=== PATIENT | female | born 1990 | race African-American/Black ===

== ENCOUNTER 2016-07-04 23:57 | Emergency (ER) | payer MEDICAID ==
[~2016-07-04] VITALS: Ht 165.1 cm; Wt 79.0 kg
[~2016-07-04 23:57] MED LIST: CLIN1CAP6 PO; HYDR-3534 PO; PERI0.126 SWISH-SPIT
[2016-07-04 23:59] VITALS: BP 125/80; PULSE 112; RESP 20; TEMP 102.8; O2SAT 97
[2016-07-05] MEDS ORDERED: DEXAMETHASONE SOD PHOS 20 MG/5 ML VIAL IM ONE (00:30)
[2016-07-05] MEDS ORDERED: IBUPROFEN 800 MG TAB PO ONE (00:30)
--- NOTE | 2016-07-05 00:41 | PD ---
HPI Chief Complaint: ENT Complaint Time Seen by Provider: 00:35 Travel History International Travel<30 days: No Contact w/Intl Traveler<30days: No Traveled to known affect area: No History of Present Illness HPI 25-year-old black female presents to emergency Department with complaints of sore throat, fever, chills, earache, congestion, cough and general malaise 2 days duration. Positive myalgias and arthralgias. She states the symptoms are severe. Worse with swallowing and coughing. No alleviating factors. She has not taken anything at home for her fever or sore throat. [facility] Past Medical History Medical History: Denies Significant Hx Diminished Hearing: No Reproductive: Yes (RT OVARIAN CYST, PID) Immunizations Current: Yes Tetanus Vaccination: < 5 Years ?: Unknown LMP: 05/2016 : 3 Para: 1 Miscarriage: 0 : 1 Past Surgical History Surgical History: No Previous Surgery Section: No Social History Alcohol Use: No Tobacco Use: No Substance Use: No Allergies-Medications (Allergen,Severity, Reaction): Coded Allergies: Keflex (Verified Allergy, Mild, rash, 07/05/16) Reported Meds & Prescriptions Reported Meds & Active Scripts Active No Active Prescriptions or Reported Medications Review of Systems Except as stated in HPI: all other systems reviewed are Neg Physical Exam Narrative GENERAL: Well-developed, well-nourished in no acute distress. Nontoxic appearing. HEAD: Normocephalic, atraumatic. EYES: Pupils equal round and reactive. Extraocular motions intact. No scleral icterus. No injection or drainage. ENT: TMs clear without erythema. The external auditory canals clear. Nose: clear . Posterior pharynx is erythematous and moist. Positive tonsillar edema with white exudate. Uvula midline. Airway patent. NECK: Trachea midline.Supple, nontender, moves head freely. No central bony tenderness or spasm. Few cervical adenopathy CARDIOVASCULAR: Regular rate and rhythm without murmurs, gallops, or rubs. RESPIRATORY: Clear to auscultation. Breath sounds equal bilaterally. No wheezes , rales, or rhonchi. GASTROINTESTINAL: Abdomen soft, non-tender, nondistended. No hepato-splenomegaly , or palpable masses. No guarding. EXTREMITIES: No clubbing, cyanosis, or edema. No joint tenderness, effusion, or edema noted. BACK: Nontender without deformity or crepitance. No flank tenderness. Data Data Last Documented VS Vital Signs Date Time Temp Pulse Resp B/P Pulse Ox O2 Delivery O2 Flow Rate FiO2 07/05/16 01:56 99.8 82 16 139/63 99 Room Air Orders Ibuprofen (Motrin) (07/05/16 00:30) Group A Rapid Strep Screen (07/05/16 00:27) Dexamethasone Inj (Decadron Inj) (07/05/16 00:30) Azithromycin (Zithromax) (07/05/16 02:00) MDM Medical Decision Making Medical Screen Exam Complete: Yes Emergency Medical Condition: Yes Medical Record Reviewed: Yes Interpretation(s) Rapid strep: Positive for group A strep Differential Diagnosis MDM: High Differential diagnoses: Strep throat, viral pharyngitis, mono, influenza, influenza-like illness Narrative Course pATIENT IS GIVEN dECADRON 10 MG im, Motrin 800 mg by mouth and by mouth fluid challenge Patient strep is positive. She is given Zithromax 500 mg by mouth. This is acute strep pharyngitis Diagnosis Primary Impression: Acute streptococcal pharyngitis Patient Instructions: General Instructions Departure Forms: Tests/Procedures, Work Release Special Instructions: No work 3 days. Additional Instructions: Rest. Force fluids. Saltwater gargles. 3 Advil every 6 hours. Chloraseptic [place] Cepastat lozenge. Zithromax, magic mouthwash, prednisone Follow-up with a primary care doctor in one week. Return to the ER if any problems. Med/Other Pt SpecificInfo: Prescription(s) given Scripts Prednisone (Deltasone)20 Mg Tab20 Mg PO BID #6 TAB Prov:Annia Townsend MD 07/05/16 Ygzpqamb-Yyndmkhhjdwtmuj-Fazhdkvpd Liq (Magic Mouthwash Adult Liq)120 Ml Susp5 Ml SWISH-SWAL Q2HR #120 ML Each 5mL contains: Nystatin 200,000units, Diphenhydramine 4.25mg, Viscous Lidocaine 10mg, Marrero syrup 0.8 mL Prov:Annia Townsend MD 07/05/16 Azithromycin (Zithromax)250 Mg [id number] Mg PO DIRECTED #6 TAB Take 2 tabs (500 mg) on day 1 then 1 tab daily x 4 days. Prov:Annia Townsend MD 07/05/16 Disposition: 01 DISCHARGE HOME Condition: Stable Wilton Montero Jul 05, 2016 00:41
[2016-07-05 01:56] VITALS: BP 139/63; PULSE 82; RESP 16; TEMP 99.8; O2SAT 99
[2016-07-05] MEDS ORDERED: MAGICADU2 SWISH-SWAL (01:59)
[2016-07-05] MEDS ORDERED: PRED-503 PO (01:59)
[2016-07-05] MEDS ORDERED: ZITH250T PO (01:59)
[2016-07-05] MEDS ORDERED: AZITHROMYCIN 250 MG TAB PO ONE (02:00)
== END 2016-07-05 02:08 | disposition home or self-care (01) ==
LOC: NEPB 23:57
DX: J02.0 Streptococcal pharyngitis (principal); B95.0 Streptococcus, group A, as the cause of diseases classified elsewhere
CPT/HCPCS: 87880; 96372; 99283; J1100

== ENCOUNTER 2016-08-23 19:18 | Emergency (ER) | payer MEDICAID ==
[~2016-08-23 19:18] MED LIST changes: -CLIN1CAP6 PO; -HYDR-3534 PO; +MAGICADU2 SWISH-SWAL; -PERI0.126 SWISH-SPIT; +PRED-503 PO; +ZITH250T PO
[2016-08-23 19:20] VITALS: BP 128/66; PULSE 71; RESP 16; TEMP 98.8; O2SAT 100
[2016-08-24 00:06] VITALS: BP 119/86; PULSE 67; RESP 16; O2SAT 99
[2016-08-24] MEDS ORDERED: MORPHINE SULFATE 4 MG/ML INJ IV PUSH ONE (00:15)
[2016-08-24] MEDS ORDERED: SODIUM CHLORIDE 0.9% FLUSH 10 ML FLUSH IVF PRN (00:15)
[2016-08-24 00:54] LABS: AUTOMATED NEUTROPHIL # 4.7 TH/MM3 (1.8-7.7); BASOPHIL % 0.6 % (0.0-2.0); EOSINOPHIL # 0.3 TH/MM3 (0-0.4); EOSINOPHIL % 3.5 % (0.0-4.0); HEMATOCRIT 32.7 % (35.0-46.0); HEMO FLAGS DIFF FINAL; LYMPHOCYTE # 1.8 TH/MM3 (1.0-4.8); MEAN CORPUSCULAR HEMOGLOBIN 29.3 PG (27.0-34.0); MONO % 7.1 % (0.0-8.0); NEUT % 63.8 % (16.0-70.0); PLATELET COUNT 223 TH/MM3 (150-450); RED CELL DISTRIBUTION WIDTH 14.1 % (11.6-17.2); WHITE BLOOD COUNT 7.4 TH/MM3 (4.0-11.0)
[2016-08-24 01:09] LABS: BACTERIA, URINE RARE /hpf; BLOOD, URINE NEG (NEG); COMMENT (UR) CULT NOT INDICATED; CULTURE IF INDICATED CULT NOT INDICATED; GLUCOSE,URINE NEG (NEG); KETONE, URINE NEG (NEG); MUCUS URINE FEW /lpf (OCC); NITRITE,URINE NEG (NEG); PH, URINE 6.5 (5.0-8.5); SQUAMOUS EPITHELIAL CELL URINE 8 /hpf (0-5); URINE COLOR YELLOW (YELLW/STRAW)
[2016-08-24 01:17] LABS: ALT (GPT) 23 U/L (10-53); ANION GAP 6 MEQ/L (5-15); AST (GOT) 13 U/L (15-37); BICARBONATE 25.8 MEQ/L (21.0-32.0); BLOOD UREA NITROGEN 9 MG/DL (7-18); CHLORIDE 106 MEQ/L (98-107); GLOMERULAR FILTRATION RATE 163 ML/MIN (>89); POTASSIUM 3.7 MEQ/L (3.5-5.1); SODIUM (NA) 138 MEQ/L (136-145)
[2016-08-24 01:24] LABS: ALKALINE PHOSPHATASE 54 U/L (45-117); CREATINE KINASE 109 U/L (26-192); TOTAL BILIRUBIN ADULT 0.2 MG/DL (0.2-1.0)
[2016-08-24 01:36] LABS: CKMB LESS THAN 0.5 NG/ML (0.5-3.6)
--- NOTE | 2016-08-24 02:11 | RADRPT ---
EXAM DATE/TIME: 08/24/2016 00:54 [place] COMPARISON: No previous studies available for comparison. INDICATIONS : Back pain radiating to the chest. MEDICAL HISTORY : None. SURGICAL HISTORY : None. ENCOUNTER: Initial ACUITY: 1 day PAIN SCORE: 8/10 LOCATION: Bilateral chest Back FINDINGS: A single view of the chest demonstrates the lungs to be symmetrically aerated without evidence of mas s, infiltrate or effusion. The cardiomediastinal contours are unremarkable. Osseous structures are intact. CONCLUSION: No acute disease. Wild Euceda MD on August 24, 2016 at 2:09 Board Certified Radiologist. This report was verified electronically.
[2016-08-24] MEDS ORDERED: HYDR-3533 PO (02:26)
--- NOTE | 2016-08-24 02:28 | PD ---
HPI Chief Complaint: Pain: Acute or Chronic Time Seen by Provider: 00:14 Travel History International Travel<30 days: No Contact w/Intl Traveler<30days: No Traveled to known affect area: No History of Present Illness HPI 25-year-old female arrives complaining of pain in the right back. It is worse with coughing and deep breathing. It's been present for about 1 day. Movement of the right arm worsens the pain. She's had no cough or fever. She has been taking ibuprofen following a dental extraction which is not helpful. [facility] Past Medical History Diminished Hearing: No Reproductive: Yes (RT OVARIAN CYST, PID) Immunizations Current: Yes ?: Not LMP: Jul 2016 : 3 Para: 1 Miscarriage: 0 : 2 Past Surgical History Surgical History: No Previous Surgery Section: No Social History Alcohol Use: No Tobacco Use: No Substance Use: No Allergies-Medications (Allergen,Severity, Reaction): Coded Allergies: Keflex (Verified Allergy, Mild, rash, 08/24/16) Reported Meds & Prescriptions Reported Meds & Active Scripts Active No Active Prescriptions or Reported Medications Review of Systems Except as stated in HPI: all other systems reviewed are Neg General / Constitutional: No: Fever, Chills Physical Exam Narrative GENERAL: 25-year-old female pleasant SKIN: Focused skin assessment warm/dry. HEAD: Atraumatic. Normocephalic. EYES: Pupils equal and round. No scleral icterus. No injection or drainage. ENT: No nasal bleeding or discharge. Mucous membranes pink and moist. NECK: Trachea midline. No JVD. CARDIOVASCULAR: Regular rate and rhythm. No murmur appreciated. RESPIRATORY: No accessory muscle use. Clear to auscultation. Breath sounds equal bilaterally. GASTROINTESTINAL: Abdomen soft, non-tender, nondistended. Hepatic and splenic margins not palpable. Minimal tenderness to palpation along the right thoracic paralumbar musculature with some spasming of the same muscle groups. MUSCULOSKELETAL: No obvious deformities. No clubbing. No cyanosis. No edema. NEUROLOGICAL: Awake and alert. No obvious cranial nerve deficits. Motor grossly within normal limits. Normal speech. PSYCHIATRIC: Appropriate mood and affect; insight and judgment normal. Data Data Last Documented VS Vital Signs Date Time Temp Pulse Resp B/P Pulse Ox O2 Delivery O2 Flow Rate FiO2 08/24/16 00:06 67 16 119/86 99 Room Air 08/23/16 19:20 98.8 Vital signs reviewed Orders Electrocardiogram (08/24/16 00:14) Ckmb (Isoenzyme) Profile (08/24/16 00:14) Complete Blood Count With Diff (08/24/16 00:14) Magnesium (Mg) (08/24/16 00:14) Troponin I (08/24/16 00:14) Chest, Single Ap (08/24/16 00:14) Ecg Monitoring (08/24/16 00:14) Iv Access Insert/Monitor (08/24/16 00:14) Oximetry (08/24/16 00:14) Oxygen Administration (08/24/16 00:14) Morphine Inj (Morphine Inj) (08/24/16 00:15) Sodium Chloride 0.9% Flush (Ns Flush) (08/24/16 00:15) Ed Urine Pregnancytest Poc (08/24/16 00:14) Comprehensive Metabolic Panel (08/24/16 00:14) Lipase (08/24/16 00:14) Urinalysis - C+S If Indicated (08/24/16 00:14) CKMB (08/24/16 00:30) CKMB% (08/24/16 00:30) Labs Laboratory Tests Test 08/24/16 00:30 White Blood Count 7.4 TH/MM3 Red Blood Count 3.80 MIL/MM3 Hemoglobin 11.1 GM/DL Hematocrit 32.7 % Mean Corpuscular Volume 86.0 FL Mean Corpuscular Hemoglobin 29.3 PG Mean Corpuscular Hemoglobin 34.0 % Concent Red Cell Distribution Width 14.1 % Platelet Count 223 TH/MM3 Mean Platelet Volume 8.9 FL Neutrophils (%) (Auto) 63.8 % Lymphocytes (%) (Auto) 25.0 % Monocytes (%) (Auto) 7.1 % Eosinophils (%) (Auto) 3.5 % Basophils (%) (Auto) 0.6 % Neutrophils # (Auto) 4.7 TH/MM3 Lymphocytes # (Auto) 1.8 TH/MM3 Monocytes # (Auto) 0.5 TH/MM3 Eosinophils # (Auto) 0.3 TH/MM3 Basophils # (Auto) 0.0 TH/MM3 CBC Comment DIFF FINAL Differential Comment Urine Color YELLOW Urine Turbidity HAZY Urine pH 6.5 Urine Specific [place] 1.022 Urine Protein NEG mg/dL Urine Glucose (UA) NEG mg/dL Urine Ketones NEG mg/dL Urine Occult Blood NEG Urine Nitrite NEG Urine Bilirubin NEG Urine Urobilinogen 2.0 MG/DL Urine Leukocyte Esterase SMALL Urine RBC 2 /hpf Urine WBC 2 /hpf Urine Squamous Epithelial 8 /hpf Cells Urine Amorphous Sediment RARE Urine Bacteria RARE /hpf Urine Mucus FEW /lpf Microscopic Urinalysis Comment CULT NOT INDICATED Sodium Level 138 MEQ/L Potassium Level 3.7 MEQ/L Chloride Level 106 MEQ/L Carbon Dioxide Level 25.8 MEQ/L Anion Gap 6 MEQ/L Blood Urea Nitrogen 9 MG/DL Creatinine 0.55 MG/DL Estimat Glomerular Filtration 163 ML/MIN Rate Random Glucose 84 MG/DL Calcium Level 9.0 MG/DL Magnesium Level 2.0 MG/DL Total Bilirubin 0.2 MG/DL Aspartate Amino Transf 13 U/L (AST/SGOT) Alanine Aminotransferase 23 U/L (ALT/SGPT) Alkaline Phosphatase 54 U/L Total Creatine Kinase 109 U/L Creatine Kinase MB LESS THAN 0.5 NG/ML Troponin I LESS THAN 0.02 NG/ML Total Protein 8.0 GM/DL Albumin 4.0 GM/DL Lipase 168 U/L [facility] Medical Decision Making Medical Screen Exam Complete: Yes Emergency Medical Condition: Yes Medical Record Reviewed: Yes Differential Diagnosis Pneumonia, myofascial strain, PE, musculoskeletal pain, hepatobiliary disease Narrative Course CBC & BMP Diagram 08/24/16 00:30 Tn < 0.2 LFTs normal Lipase normal UA: contaminated specimen most likely Last 24 hours Impressions Chest X-Ray 08/24/16 0014 Signed Impressions: Service Date/Time: Wednesday, August 24, 2016 00:54 - CONCLUSION: No acute disease. Wild Euceda MD Diagnosis Primary Impression: Back pain Qualified Code: M54.6 - Acute right-sided thoracic back pain Referrals: Primary Care Physician 2 days Additional Instructions: You have a choice when it comes to health care, and we are glad that you chose [facility]. Hopefully, we have met your expectations on today's visit. You are welcome to return to [facility] at any time, as we are committed to meeting the health care needs of our community. Med/Other Pt SpecificInfo: Prescription(s) given Scripts Hydrocodone-Acetaminophen (Lortab)5-325 Mg Tab1-2 Tab PO Q6H PRN (PAIN SCALE 6 TO 10) #15 TAB Ref 0 Prov:Robert Renteria MD 08/24/16 Disposition: 01 DISCHARGE HOME Condition: Stable Robert Renteria MD Aug 24, 2016 02:28
[2016-08-24 02:46] VITALS: BP 115/80
--- NOTE | 2016-08-24 14:14 | EKG ---
Date Performed: 08/24/2016 Time Performed: 00:45:57 PTAGE: 25 years EKG: Sinus rhythm NORMAL ECG Compared to prior tracing no significant change PREVIOUS TRACING 09/27/2000 17.11.48 DOCTOR: Everton Chaidez Interpretating Date/Time 08/24/2016 14:13:18
== END 2016-08-24 02:58 | disposition home or self-care (01) ==
LOC: NEPC 19:18
DX: M54.6 Pain in thoracic spine (principal); M54.5 Low back pain; M62.830 Muscle spasm of back; Z87.42 Personal history of other diseases of the female genital tract
CPT/HCPCS: 71010; 80053; 81001; 82550; 82552; 83690; 83735; 84484; 84703; 85025; 93005; 96374; 99284; J2270

== ENCOUNTER 2016-11-17 15:52 | Emergency (ER) | payer MEDICAID ==
[~2016-11-17] VITALS: Ht 162.6 cm; Wt 80.0 kg
[~2016-11-17 15:52] MED LIST changes: +HYDR-3533 PO; -MAGICADU2 SWISH-SWAL; -PRED-503 PO; -ZITH250T PO
[2016-11-17 15:56] VITALS: BP 128/69; TEMP 98.7; O2SAT 96
[2016-11-17] MEDS ORDERED: IBUP800T23 PO (16:07)
[2016-11-17] MEDS ORDERED: PERI0.126 SWISH-SPIT (16:07)
[2016-11-17] MEDS ORDERED: CLIN1CAP5 PO (16:08)
--- NOTE | 2016-11-17 16:08 | PD ---
HPI Chief Complaint: Oral / Dental Pain or Problem Time Seen by Provider: 16:06 Travel History International Travel<30 days: No Contact w/Intl Traveler<30days: No Traveled to known affect area: No History of Present Illness HPI 26-year-old female presents to the emergency Department with complaint of left upper, right upper, right lower tooth pain since last night. Reports all of the teeth have broken down to the gums a while ago and are not painful. Denies fever, vomiting. Has been taking ibuprofen for symptom management. Has no other medical complaints. Allergies to Keflex. No other modifying factors or associated signs and symptoms. PFSH Past Medical History Diminished Hearing: No Reproductive: Yes (RT OVARIAN CYST, PID) Immunizations Current: Yes ?: Not : 3 Para: 1 Miscarriage: 0 : 2 Past Surgical History Section: No Social History Alcohol Use: No Tobacco Use: No Substance Use: No Allergies-Medications (Allergen,Severity, Reaction): Coded Allergies: Keflex (Verified Allergy, Mild, rash, 11/17/16) Reported Meds & Prescriptions Reported Meds & Active Scripts Active Clindamycin (Clindamycin HCl) 150 Mg Cap 300 Mg PO Q6H 10 Days Peridex Liq (Chlorhexidine Gluconate (Mouth) Liq) 0.12% Soln 15 Ml SWISH-SPIT BID 10 Days Ibuprofen 800 Mg Tab 800 Mg PO Q6HR PRN Lortab (Hydrocodone-Acetaminophen) 5-325 Mg Tab 1-2 Tab PO Q6H PRN Review of Systems Except as stated in HPI: all other systems reviewed are Neg Physical Exam Narrative GENERAL: Well-nourished, well-developed female patient, in no acute distress; afebrile, nontoxic-appearing SKIN: Warm and dry. HEAD: Atraumatic. Normocephalic. No facial edema, erythema, tenderness on palpation. No lymphadenopathy. EYES: Pupils equal and round. No scleral icterus. No injection or drainage. ENT: Mucosa pink and moist. Airway patent. MOUTH: Mucous membranes moist, no lesions, tongue and gums appear normal. Tooth #15, #3, #31 with minimal to to the gingival area noted; all with tenderness on palpation. Surrounding gingiva is without erythema, edema, drainage. No obvious abscesses noted. NECK: Trachea midline. No lymphadenopathy. CARDIOVASCULAR: Regular rate. RESPIRATORY: No accessory muscle use. GASTROINTESTINAL: Rounded. MUSCULOSKELETAL: No obvious deformities. No clubbing. No cyanosis. No edema. NEUROLOGICAL: Awake and alert. Oriented 3. No obvious cranial nerve deficits. Motor grossly within normal limits. Normal speech. PSYCHIATRIC: Appropriate mood and affect; insight and judgment normal. Data Data Last Documented VS Vital Signs Date Time Temp Pulse Resp B/P Pulse Ox O2 Delivery O2 Flow Rate FiO2 11/17/16 15:56 98.7 62 18 128/69 96 MDM Medical Decision Making Medical Screen Exam Complete: Yes Emergency Medical Condition: Yes Medical Record Reviewed: Yes Differential Diagnosis Dentalgia, dental cavities, dental abscess, gingivitis Narrative Course 26-year-old female with dentalgia to left upper, right upper, right lower teeth. Patient is afebrile and nontoxic-appearing. Denies fever, vomiting. Emergency dental information sheet provided for home. Instructed patient to follow up with dentist. Clindamycin, Peridex mouth rinse, ibuprofen prescribed for home. Patient verbalizes understanding and agreement with treatment plan. Patient is medically cleared and stable for discharge. Discussed reasons to return to the emergency department. Instructed patient to follow up with primary care provider. Patient agrees with treatment plan. The patients vital signs are stable and the patient is stable for outpatient follow-up and treatment. Patient discharged home, stable and in no acute distress. Diagnosis Primary Impression: Dentalgia Referrals: Dentist Primary Care Physician Patient Instructions: Acute Dental Trauma (ED), Dental Abscess (ED), Dental Caries (ED), General Instructions, Toothache (ED) Departure Forms: Tests/Procedures, Work Release Enter return to work date: Nov 17, 2016 Additional Instructions: Complete full course of antibiotics Ibuprofen or Tylenol as directed and as needed to reduce pain and inflammation Use Peridex as directed for oral hygiene Warm or cool compresses to the affected area Follow-up with dentist Follow-up with primary care provider Return to emergency department immediately with worsening of symptoms Med/Other Pt SpecificInfo: Prescription(s) given Scripts Clindamycin 150 Mg [id number] Mg PO Q6H 10 Days Ref 0 Prov:Mónica Henderson 11/17/16 Chlorhexidine Gluconate (Mouth) Liq (Peridex Liq)0.12% Soln15 Ml SWISH-SPIT BID 10 Days Ref 0 Prov:Mónica HendersonP 11/17/16 Ibuprofen 800 Mg Snu780 Mg PO Q6HR PRN (PAIN) #30 TAB Ref 0 Prov:Mónica Henderson 11/17/16 Disposition: 01 DISCHARGE HOME Condition: Stable Mónica Henderson Nov 17, 2016 16:08
== END 2016-11-17 16:26 | disposition home or self-care (01) ==
LOC: NEPK 15:52
DX: K08.89 Other specified disorders of teeth and supporting structures (principal)
CPT/HCPCS: 99284

== ENCOUNTER 2017-01-21 10:35 | Emergency (ER) | payer SELFPAY ==
[~2017-01-21 10:35] MED LIST changes: +CLIN1CAP5 PO; +IBUP800T23 PO; +PERI0.126 SWISH-SPIT
[2017-01-21 10:38] VITALS: BP 120/61; PULSE 57; RESP 15; TEMP 98.4; O2SAT 98
--- NOTE | 2017-01-25 07:49 | EL ---
cc: HERLINDA GOLDSTEIN MD DATE OF : 1990 ADMISSION DATE: 01/21/2017 CHIEF COMPLAINT Bilateral eye drainage for four days and eye itching bilaterally for one month. TIME SEEN: 12:10 TRAVEL HISTORY International travel in 30 days: No. Contact with someone who traveled internationally in the past 30 days: No. Travel to known affected areas: No. HISTORY OF PRESENT ILLNESS A 26-year-old female presents to the emergency department complaining of one months worth of bilateral eye itching. The patient says she has flushed her eyes numerous times and she constantly has eye itching. She also reports for the past four days that she has woken up in the morning with crust over her eyes. She also tells me that she has had bilateral eye drainage. She denies any foreign body sensation. She denies any vision changes or floaters. She has not seen her primary care provider, nor has she seen an truck operator. She has no other complaints at this time. [facility] PAST MEDICAL HISTORY Denies. SOCIAL HISTORY Denies any alcohol, drugs or tobacco. ALLERGIES No known drug allergies. MEDICATION None. REVIEW OF SYSTEMS All systems reviewed and negative, except for what is stated above in the HPI relating to bilateral eye drainage and itching. PHYSICAL EXAMINATION GENERAL: AAO x 3, no acute distress, well-nourished, well-developed. SKIN: Warm and dry. No visible rashes or bruising. HEAD: Normocephalic, atraumatic. EYES: No scleral icterus. EOM intact. PERRLA. Bilateral eye injection with slight purulent drainage in the medial corners. ENT: No nasal drainage noted. Mucous membranes pink. Airway patent. NECK: Supple, trachea midline. No JVD. CARDIOVASCULAR: Regular rate and rhythm without murmurs, rubs or gallops. RESPIRATORY: Breath sounds equal bilaterally. No rhonchi or rales. GASTROINTESTINAL: Visual inspection normal. EXTREMITIES: No cyanosis or edema. BACK: No obvious deformity. NEURO: Grossly intact. PSYCHE: AAO x 3. Normal affect. DATA Temperature 98.4, pulse 57, respirations 15, blood pressure 120/61, 02 sat 98%. [facility] medical screening exam completed: Yes. Emergency medical condition: Yes. Medical record reviewed: Yes. DIFFERENTIAL DIAGNOSIS Bilateral eye conjunctivitis, allergic conjunctivitis, less likely foreign body, less likely retinal detachment. NARRATIVE A 26-year-old female here with complaints of bilateral eye itching for one month and eye drainage for the past four days. On examination she appears to have a bacterial conjunctivitis. I do believe that she also has some underlying allergic conjunctivitis. I recommend that she followup with an truck operator upon discharge. We have discussed this at length. I also recommend followup with her primary care provider. CARE IN THE EMERGENCY DEPARTMENT I will provide the patient with some Pataday eyedrops as well as erythromycin ointment. PRESCRIPTIONS 1. Pataday 1 GTT bilateral eyes. #1, 0 refills. 2. Erythromycin ophthalmic ointment 0.5%, apply one ribbon to the bilateral eyes twice a day for 7 days. #1, 0 refills. DISPOSITION Home. CONDITION Stable. DISCHARGE INSTRUCTIONS The patient was advised to use eyedrops and eye ointment as prescribed. She was instructed to followup with an truck operator as well as her primary care provider. I instructed her to return to the emergency department if her symptoms return or worsen. I advised her if she has any vision changes or acute eye pain to return to the emergency department as soon as possible. DWAYNE Andino /12:20 PM /7:44 AM
== END 2017-01-21 12:27 | disposition home or self-care (01) ==
LOC: NED 10:35
DX: H10.13 Acute atopic conjunctivitis, bilateral (principal)
CPT/HCPCS: 99281

== ENCOUNTER 2017-02-01 12:54 | Emergency (ER) | payer MEDICAID ==
[~2017-02-01] VITALS: Ht 165.1 cm; Wt 82.0 kg
[2017-02-01 12:56] VITALS: BP 111/67; PULSE 62; RESP 20; TEMP 98.8; O2SAT 99
[2017-02-01 13:10] VITALS: BP 118/79; PULSE 58; RESP 16; O2SAT 100
--- NOTE | 2017-02-01 13:41 | PD ---
HPI Chief Complaint: Supervisor [employer] Problem/Complaint Time Seen by Provider: 13:12 Travel History International Travel<30 days: No Contact w/Intl Traveler<30days: No Traveled to known affect area: No History of Present Illness HPI 26yo F with no significant PMH presents to the ED with c/o vaginal itching and discharge for 3 days. Thinks she has yeast infection. Denies any fever, chest pain, sob, n/v, abdominal pain, dysuria, hematuria, vaginal bleeding. Pt is sexually active. LMP last month. PFSH Past Medical History Medical History: Denies Significant Hx Diminished Hearing: No Reproductive: Yes (RT OVARIAN CYST, PID) Immunizations Current: Yes ?: Not LMP: LAST MONTH : 3 Para: 1 Miscarriage: 0 : 2 Past Surgical History Surgical History: No Previous Surgery Section: No Social History Alcohol Use: No Tobacco Use: No Substance Use: No Allergies-Medications (Allergen,Severity, Reaction): Coded Allergies: cephalexin (Unverified Allergy, Mild, rash, 02/01/17) Reported Meds & Prescriptions Reported Meds & Active Scripts Active No Active Prescriptions or Reported Medications Review of Systems Except as stated in HPI: all other systems reviewed are Neg Physical Exam Narrative GENERAL: 26yo F not in distress. SKIN: Focused skin assessment warm/dry. HEAD: Atraumatic. Normocephalic. EYES: Pupils equal and round. No scleral icterus. No injection or drainage. ENT: No nasal bleeding or discharge. Mucous membranes pink and moist. NECK: Trachea midline. No JVD. CARDIOVASCULAR: Regular rate and rhythm. No murmur appreciated. RESPIRATORY: No accessory muscle use. Clear to auscultation. Breath sounds equal bilaterally. GASTROINTESTINAL: Abdomen soft, non-tender, nondistended. No rebound tenderness or guarding. PELVIC: Small amount of white vaginal discharge. No CMT or adnexal tenderness bilaterally. MUSCULOSKELETAL: No obvious deformities. No clubbing. No cyanosis. No edema. NEUROLOGICAL: Awake and alert. No obvious cranial nerve deficits. Motor grossly within normal limits. Normal speech. PSYCHIATRIC: Appropriate mood and affect; insight and judgment normal. Data Data Last Documented VS Vital Signs Date Time Temp Pulse Resp B/P (MAP) Pulse Ox O2 Delivery O2 Flow Rate FiO2 02/01/17 13:10 58 16 118/79 (92) 100 Room Air 02/01/17 12:56 98.8 Orders Orders Wet Prep Profile (02/01/17 13:31) Ed Urine Pregnancytest Poc (02/01/17 13:31) Labs Laboratory Tests Test 02/01/17 13:30 Clue Cells (Wet Prep) NONE SEEN Vaginal Trichomonas (Wet Prep) NONE SEEN Vaginal Yeast (Wet Prep) NONE SEEN MDM Medical Decision Making Medical Screen Exam Complete: Yes Emergency Medical Condition: Yes Differential Diagnosis Vaginal candidiasis vs. bacterial vaginosis vs. gonorrhea vs. chlamydia Narrative Course 26yo F with PMH of vaginal discharge and itching. Pelvic exam showed small amount of white discharge which may be physiologic. negative. Wet prep negative. Pt to follow up with CHIEF LOAD DISPATCHER. Return precautions given. Diagnosis Primary Impression: Vaginal discharge Patient Instructions: General Instructions Departure Forms: Tests/Procedures Additional Instructions: Please follow up with your jowl trimmer in 3-7 days. Return precautions given. Med/Other Pt SpecificInfo: No Change to Meds Scripts No Active Prescriptions or Reported Meds Disposition: 01 DISCHARGE HOME Condition: Stable Elicia Luna DO Feb 01, 2017 13:41
== END 2017-02-01 15:48 | disposition home or self-care (01) ==
LOC: NEPC 12:54
DX: N89.8 Other specified noninflammatory disorders of vagina (principal)
CPT/HCPCS: 84703; 87210; 99284

== ENCOUNTER 2017-03-09 13:32 | Emergency (ER) | payer MEDICAID ==
[~2017-03-09] VITALS: Ht 165.1 cm; Wt 82.0 kg
[2017-03-09 13:35] VITALS: BP 120/77; PULSE 88; RESP 20; TEMP 99.4; O2SAT 96
--- NOTE | 2017-03-09 13:48 | PD ---
Physical Exam Date Seen by Provider: Mar 09, 2017 Time Seen by Provider: 13:47 Narrative 26 yo female here for N/V/D. Going on since wednesday. Some abdominal cramping. No sick contacts. Not getting better. No urinary symptoms. Per patient not . Vitals are stable in triage. Awaiting bed placement. Data Data Last Documented VS Vital Signs Date Time Temp Pulse Resp B/P (MAP) Pulse Ox O2 Delivery O2 Flow Rate FiO2 03/09/17 13:35 99.4 88 20 120/77 (91) 96 Room Air [facility] Medical Record Reviewed: Yes Supervised Visit with SURINDER: No Scripts No Active Prescriptions or Reported Meds Darius Babcock Mar 09, 2017 13:48
[2017-03-09] MEDS ORDERED: SODIUM CHLOR 0.9% 1000 ML INJ 1,000 ML IV ONE (17:09)
--- NOTE | 2017-03-09 17:14 | PD ---
HPI Chief Complaint: GI Complaint Time Seen by Provider: 17:00 Travel History International Travel<30 days: No Contact w/Intl Traveler<30days: No Traveled to known affect area: No History of Present Illness HPI 26-year-old female presents to the emergency department for evaluation of nausea , vomiting, abdominal cramping that started on Wednesday, 3 days ago. She states this started after eating at [employer], a crab restaurant. Patient states she has a cramping in her abdomen, but no pain. No diarrhea, constipation. No blood in her stool. She denies anyone else being sick that ate at the restaurant with her. No fevers or chills. No chest pain or shortness breath. She denies any pelvic pain. No abnormal vaginal discharge or risk of STDs. She denies any urinary symptoms. Patient denies . She has no chronic medical problems and takes no prescribed medications. No alcohol, tobacco, illicit drug use. PFSH Past Medical History Medical History: Denies Significant Hx Diminished Hearing: No Reproductive: Yes (RT OVARIAN CYST, PID) Immunizations Current: Yes ?: Not LMP: 01/2017 : 3 Para: 1 Miscarriage: 0 : 2 Past Surgical History Surgical History: No Previous Surgery Section: No Social History Alcohol Use: No Tobacco Use: No Substance Use: No Allergies-Medications (Allergen,Severity, Reaction): Coded Allergies: cephalexin (Unverified Allergy, Mild, rash, 03/09/17) Reported Meds & Prescriptions Reported Meds & Active Scripts Active No Active Prescriptions or Reported Medications Review of Systems Except as stated in HPI: all other systems reviewed are Neg Physical Exam Narrative GENERAL: Well-nourished, well-developed female patient, ambulatory. Afebrile. SKIN: Focused skin assessment warm/dry. HEAD: Normocephalic. EYES: No scleral icterus. No injection or drainage. NECK: Supple, trachea midline. No JVD or lymphadenopathy. CARDIOVASCULAR: Regular rate and rhythm without murmurs, gallops, or rubs. RESPIRATORY: Breath sounds equal bilaterally. No accessory muscle use. Lungs sounds are clear to auscultation. GASTROINTESTINAL: Abdomen soft, non-tender, nondistended. MUSCULOSKELETAL: No cyanosis, or edema. BACK: Nontender without obvious deformity. No CVA tenderness. Data Data Last Documented VS Vital Signs Date Time Temp Pulse Resp B/P (MAP) Pulse Ox O2 Delivery O2 Flow Rate FiO2 03/09/17 17:30 66 17 120/71 (87) 98 Room Air 03/09/17 13:35 99.4 Orders Orders Complete Blood Count With Diff (03/09/17 17:09) Comprehensive Metabolic Panel (03/09/17 17:) Urinalysis - C+S If Indicated (03/09/17 17:) Lipase (03/09/17:) Iv Access Insert/Monitor (03/09/17:) Ecg Monitoring (03/09/17:) Oximetry (03/09/17:) Ondansetron Inj (Zofran Inj) (03/09/17:15) Sodium Chlor 0.9% 1000 Ml Inj (Ns 1000 M (03/09/17 17:09) Sodium Chloride 0.9% Flush (Ns Flush) (03/09/17:15) Ed Urine Pregnancytest Poc (03/09/17 17:09) Labs Laboratory Tests Test 03/09/17 17:20 03/09/17 17:21 Urine Color LIGHT-YELLOW Urine Turbidity HAZY Urine pH 6.5 Urine Specific [place] 1.011 Urine Protein NEG mg/dL Urine Glucose (UA) NEG mg/dL Urine Ketones NEG mg/dL Urine Occult Blood NEG Urine Nitrite NEG Urine Bilirubin NEG Urine Urobilinogen LESS THAN 2.0 MG/DL Urine Leukocyte Esterase TRACE Urine RBC 1 /hpf Urine WBC 2 /hpf Urine Squamous Epithelial Cells 5 /hpf Microscopic Urinalysis Comment CULT NOT INDICATED White Blood Count 7.9 TH/MM3 Red Blood Count 4.06 MIL/MM3 Hemoglobin 12.0 GM/DL Hematocrit 35.7 % Mean Corpuscular Volume 88.0 FL Mean Corpuscular Hemoglobin 29.6 PG Mean Corpuscular Hemoglobin Concent 33.6 % Red Cell Distribution Width 13.4 % Platelet Count 250 TH/MM3 Mean Platelet Volume 8.7 FL Neutrophils (%) (Auto) 62.6 % Lymphocytes (%) (Auto) 27.5 % Monocytes (%) (Auto) 5.9 % Eosinophils (%) (Auto) 3.5 % Basophils (%) (Auto) 0.5 % Neutrophils # (Auto) 5.0 TH/MM3 Lymphocytes # (Auto) 2.2 TH/MM3 Monocytes # (Auto) 0.5 TH/MM3 Eosinophils # (Auto) 0.3 TH/MM3 Basophils # (Auto) 0.0 TH/MM3 CBC Comment DIFF FINAL Differential Comment Blood Urea Nitrogen 13 MG/DL Creatinine 0.67 MG/DL Random Glucose 92 MG/DL Total Protein 8.4 GM/DL Albumin 4.0 GM/DL Calcium Level 8.6 MG/DL Alkaline Phosphatase 81 U/L Aspartate Amino Transf (AST/SGOT) 18 U/L Alanine Aminotransferase (ALT/SGPT) 55 U/L Total Bilirubin 0.1 MG/DL Sodium Level 137 MEQ/L Potassium Level 3.7 MEQ/L Chloride Level 105 MEQ/L Carbon Dioxide Level 25.5 MEQ/L Anion Gap 7 MEQ/L Estimat Glomerular Filtration Rate 129 ML/MIN Lipase 201 U/L [facility] Medical Decision Making Medical Screen Exam Complete: Yes Emergency Medical Condition: Yes Medical Record Reviewed: Yes Differential Diagnosis Gastroenteritis versus UTI versus electrolyte abnormality versus Narrative Course 26 year old female presents to the emergency department for evaluation nausea, vomiting, abdominal cramping that started 3 days ago. She reports 4 episodes of vomiting today. CBC, CMP, lipase, UA, urine test are ordered and pending. Patient is given normal saline 1 L IV bolus, Zofran 4 mg IV. CBC is unremarkable. CMP shows no acute abnormality. Lipase is 201. UA is negative for acute infection. UPT is negative. Patient will be discharged prescription for Zofran for nausea/vomiting. Patient is instructed to follow with her primary care physician. She is return here for any acute worsening of symptoms. She verbalizes agreement and understanding. The patient was discharged in stable condition with instructions, including return instructions and follow up instructions. Diagnosis Primary Impression: Gastroenteritis Referrals: Primary Care Physician call for appointment Patient Instructions: Gastroenteritis (ED), General Instructions Additional Instructions: Take Zofran as instructed as needed for nausea/vomiting. [place] diet. Follow-up with your primary care physician. Return to the emergency department for any acute worsening of symptoms. Med/Other Pt SpecificInfo: Prescription(s) given Scripts Ondansetron Odt (Zofran Odt) 4 Mg Tab 4 MG SL Q6HR Y for Nausea/Vomiting, #16 TAB 0 Refills Prov: Carol Badillo 03/09/17 Disposition: 01 DISCHARGE HOME Condition: Stable Carol Badillo Mar 09, 2017 17:14
[2017-03-09] MEDS ORDERED: ONDANSETRON HCL 4 MG/2 ML VIAL IV PUSH ONE (17:15)
[2017-03-09] MEDS ORDERED: SODIUM CHLORIDE 0.9% FLUSH 10 ML FLUSH IVF PRN (17:15)
[2017-03-09 17:30] VITALS: BP 120/71; PULSE 66; RESP 17; O2SAT 98
[2017-03-09 17:31] LABS: BLOOD, URINE NEG (NEG); COMMENT (UR) CULT NOT INDICATED; CULTURE IF INDICATED CULT NOT INDICATED; GLUCOSE,URINE NEG (NEG); KETONE, URINE NEG (NEG); NITRITE,URINE NEG (NEG); PH, URINE 6.5 (5.0-8.5); SQUAMOUS EPITHELIAL CELL URINE 5 /hpf (0-5); URINE COLOR LIGHT-YELLOW (YELLW/STRAW)
[2017-03-09 17:36] LABS: BASOPHIL % 0.5 % (0.0-2.0); EOSINOPHIL # 0.3 TH/MM3 (0-0.4); EOSINOPHIL % 3.5 % (0.0-4.0); HEMATOCRIT 35.7 % (35.0-46.0); HEMO FLAGS DIFF FINAL; LYMPH % 27.5 % (9.0-44.0); LYMPHOCYTE # 2.2 TH/MM3 (1.0-4.8); MEAN CORPUSCULAR HEMOGLOBIN 29.6 PG (27.0-34.0); MEAN CORPUSCULAR HGB CONC 33.6 % (32.0-36.0); MONO % 5.9 % (0.0-8.0); NEUT % 62.6 % (16.0-70.0); PLATELET COUNT 250 TH/MM3 (150-450); RED BLOOD COUNT 4.06 MIL/MM3 (4.00-5.30); RED CELL DISTRIBUTION WIDTH 13.4 % (11.6-17.2); WHITE BLOOD COUNT 7.9 TH/MM3 (4.0-11.0)
[2017-03-09 17:56] LABS: ALT (GPT) 55 U/L (10-53); ANION GAP 7 MEQ/L (5-15); AST (GOT) 18 U/L (15-37); BICARBONATE 25.5 MEQ/L (21.0-32.0); BLOOD UREA NITROGEN 13 MG/DL (7-18); CHLORIDE 105 MEQ/L (98-107); GLOMERULAR FILTRATION RATE 129 ML/MIN (>89); POTASSIUM 3.7 MEQ/L (3.5-5.1); SODIUM (NA) 137 MEQ/L (136-145)
[2017-03-09 17:58] LABS: ALKALINE PHOSPHATASE 81 U/L (45-117); TOTAL BILIRUBIN ADULT 0.1 MG/DL (0.2-1.0)
[2017-03-09] MEDS ORDERED: ZOFR4TAB3 SL (18:09)
--- NOTE | 2017-03-09 18:28 | PD ---
Data Data Last Documented VS Vital Signs Date Time Temp Pulse Resp B/P (MAP) Pulse Ox O2 Delivery O2 Flow Rate FiO2 03/09/17 17:30 66 17 120/71 (87) 98 Room Air 03/09/17 13:35 99.4 Orders Orders Complete Blood Count With Diff (03/09/17 17:09) Comprehensive Metabolic Panel (03/09/17 17:09) Urinalysis - C+S If Indicated (03/09/17 17:09) Lipase (03/09/17:) Iv Access Insert/Monitor (03/09/17 17:) Ecg Monitoring (03/09/17 17:09) Oximetry (03/09/17 17:09) Ondansetron Inj (Zofran Inj) (03/09/17 17:15) Sodium Chlor 0.9% 1000 Ml Inj (Ns 1000 M (03/09/17 17:09) Sodium Chloride 0.9% Flush (Ns Flush) (03/09/17 17:15) Ed Urine Pregnancytest Poc (03/09/17 17:09) Ed Discharge Order (03/09/17 18:10) Labs Laboratory Tests Test 03/09/17 17:20 03/09/17 17:21 Urine Color LIGHT-YELLOW Urine Turbidity HAZY Urine pH 6.5 Urine Specific [place] 1.011 Urine Protein NEG mg/dL Urine Glucose (UA) NEG mg/dL Urine Ketones NEG mg/dL Urine Occult Blood NEG Urine Nitrite NEG Urine Bilirubin NEG Urine Urobilinogen LESS THAN 2.0 MG/DL Urine Leukocyte Esterase TRACE Urine RBC 1 /hpf Urine WBC 2 /hpf Urine Squamous Epithelial Cells 5 /hpf Microscopic Urinalysis Comment CULT NOT INDICATED White Blood Count 7.9 TH/MM3 Red Blood Count 4.06 MIL/MM3 Hemoglobin 12.0 GM/DL Hematocrit 35.7 % Mean Corpuscular Volume 88.0 FL Mean Corpuscular Hemoglobin 29.6 PG Mean Corpuscular Hemoglobin Concent 33.6 % Red Cell Distribution Width 13.4 % Platelet Count 250 TH/MM3 Mean Platelet Volume 8.7 FL Neutrophils (%) (Auto) 62.6 % Lymphocytes (%) (Auto) 27.5 % Monocytes (%) (Auto) 5.9 % Eosinophils (%) (Auto) 3.5 % Basophils (%) (Auto) 0.5 % Neutrophils # (Auto) 5.0 TH/MM3 Lymphocytes # (Auto) 2.2 TH/MM3 Monocytes # (Auto) 0.5 TH/MM3 Eosinophils # (Auto) 0.3 TH/MM3 Basophils # (Auto) 0.0 TH/MM3 CBC Comment DIFF FINAL Differential Comment Blood Urea Nitrogen 13 MG/DL Creatinine 0.67 MG/DL Random Glucose 92 MG/DL Total Protein 8.4 GM/DL Albumin 4.0 GM/DL Calcium Level 8.6 MG/DL Alkaline Phosphatase 81 U/L Aspartate Amino Transf (AST/SGOT) 18 U/L Alanine Aminotransferase (ALT/SGPT) 55 U/L Total Bilirubin 0.1 MG/DL Sodium Level 137 MEQ/L Potassium Level 3.7 MEQ/L Chloride Level 105 MEQ/L Carbon Dioxide Level 25.5 MEQ/L Anion Gap 7 MEQ/L Estimat Glomerular Filtration Rate 129 ML/MIN Lipase 201 U/L MDM Supervised Visit with SURINDER: Yes Narrative Course The history, exam, and medical decision-making in the associated mid-level provider note were completed with my assistance. I reviewed and agree with the findings presented. I attest that I had a [id number] encounter with the patient on the same day, and personally performed and documented my assessment and findings in the medical record. *My assessment and Findings: 26 showed a nausea vomiting diarrhea for couple days. Looks well. No sick contacts. Thinks maybe she ate some bad food. Benign exam. Recommend supportive treatment. Diagnosis Primary Impression: Gastroenteritis Referrals: Primary Care Physician call for appointment Patient Instructions: General Instructions, Gastroenteritis (ED) Additional Instruction: Take Zofran as instructed as needed for nausea/vomiting. [place] diet. Follow-up with your primary care physician. Return to the emergency department for any acute worsening of symptoms. Scripts Ondansetron Odt (Zofran Odt) 4 Mg Tab 4 MG SL Q6HR Y for Nausea/Vomiting, #16 TAB 0 Refills Prov: Carol Badillo RUBEN 03/09/17 Disposition: 01 DISCHARGE HOME Condition: Stable Didier Castro MD Mar 09, 2017 18:28
== END 2017-03-09 18:45 | disposition home or self-care (01) ==
LOC: NEPD 13:32
DX: K52.9 Noninfective gastroenteritis and colitis, unspecified (principal)
CPT/HCPCS: 80053; 81001; 83690; 84703; 85025; 96361; 96374; 99284; J2405; J7030

== ENCOUNTER 2017-04-26 11:26 | Emergency (ER) | payer MEDICAID ==
[~2017-04-26 11:26] MED LIST changes: -CLIN1CAP5 PO; -HYDR-3533 PO; -IBUP800T23 PO; -PERI0.126 SWISH-SPIT; +ZOFR4TAB3 SL
[2017-04-26 11:28] VITALS: BP 123/75; PULSE 73; RESP 12; TEMP 97.9; O2SAT 98
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
--- NOTE | 2017-04-26 14:18 | RADRPT ---
EXAM DATE/TIME: 04/26/2017 13:24 [facility] COMPARISON: No previous studies available for comparison. INDICATIONS : Left hand painful and swollen, especially 3rd and 4th digits. MEDICAL HISTORY : None. SURGICAL HISTORY : None. ENCOUNTER: Initial ACUITY: 1 day PAIN SCORE: 8/10 LOCATION: Left hand FINDINGS: Soft tissue swelling third and fourth digits without fracture.. The interphalangeal and metacarpopha langeal joints are intact. Bony mineralization is normal. CONCLUSION: Soft tissue swelling third and fourth digits without fracture. Kiko Valdez MD FACR on April 26, 2017 at 14:15 Board Certified Radiologist. This report was verified electronically.
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
[2017-04-26] MEDS ORDERED: IBUPROFEN 800 MG TAB PO ONE (14:45)
[2017-04-26] MEDS ORDERED: ACETAMINOPHEN/HYDROcodone 325 MG/5 MG TAB PO ONE (14:45)
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
[2017-04-26] MEDS ORDERED: IBUP-232 PO (16:13)
== END 2017-04-26 16:26 | disposition home or self-care (01) ==
LOC: NEPK 11:26
DX: S30.0XXA Contusion of lower back and pelvis, initial encounter (principal); S50.02XA Contusion of left elbow, initial encounter; S70.02XA Contusion of left hip, initial encounter; S60.222A Contusion of left hand, initial encounter; M25.512 Pain in left shoulder; Y04.2XXA Assault by strike against or bumped into by another person, initial encounter
CPT/HCPCS: 72100; 72170; 73030; 73070; 73080; 73130; 99284

== ENCOUNTER 2017-06-26 19:15 | Emergency (ER) | payer MEDICAID ==
[~2017-06-26] VITALS: Ht 162.6 cm; Wt 81.0 kg
[~2017-06-26 19:15] MED LIST changes: +IBUP-232 PO
[2017-06-26 19:16] VITALS: BP 123/69; PULSE 82; RESP 16; TEMP 98.8; O2SAT 100
[2017-06-26] MEDS ORDERED: SODIUM CHLOR 0.9% 1000 ML INJ 1,000 ML IV SCH (21:48)
--- NOTE | 2017-06-26 21:53 | PD ---
HPI Chief Complaint: Cold / Flu Symptoms Time Seen by Provider: 21:44 Travel History International Travel<30 days: No Contact w/Intl Traveler<30days: No Traveled to known affect area: No History of Present Illness HPI 26-year-old female here for evaluation of cough, headache, body aches, nausea, and vomiting, fever. Symptoms started yesterday evening. Cough is productive of yellowish sputum. The patient reports that she cannot keep any food or liquids down as she becomes nauseous and vomits. She also has felt subjective fevers and chills and has taken Tylenol for this. No abdominal pain. No chest pain or dyspnea. Headache is diffuse, pressure, mild to moderate. PFSH Past Medical History Diminished Hearing: No Reproductive: Yes (RT OVARIAN CYST, PID) Immunizations Current: Yes ?: Not LMP: unknown : 3 Para: 1 Miscarriage: 0 : 2 Past Surgical History Section: No Social History Alcohol Use: No Tobacco Use: No Substance Use: No Allergies-Medications (Allergen,Severity, Reaction): Coded Allergies: cephalexin (Unverified Allergy, Mild, rash, 06/26/17) Reported Meds & Prescriptions Reported Meds & Active Scripts Active No Active Prescriptions or Reported Medications Review of Systems Except as stated in HPI: all other systems reviewed are Neg Physical Exam Narrative GENERAL: Well-developed, well-nourished, comfortable, no apparent distress. SKIN: Focused skin assessment warm/dry. No rash. HEAD: Atraumatic. Normocephalic. EYES: Pupils equal and round. No scleral icterus. No injection or drainage. ENT: No nasal bleeding or discharge. Mucous membranes pink and moist. Pharynx with mild erythema without exudates. Uvula midline. Normal phonation. No drooling or stridor. NECK: Trachea midline. No JVD. No nuchal rigidity. CARDIOVASCULAR: Regular rate and rhythm. RESPIRATORY: No accessory muscle use. Clear to auscultation. Breath sounds equal bilaterally. GASTROINTESTINAL: Abdomen soft, non-tender, nondistended. Hepatic and splenic margins not palpable. MUSCULOSKELETAL: No obvious deformities. No clubbing. No cyanosis. No edema. NEUROLOGICAL: Awake and alert. No obvious cranial nerve deficits. Motor grossly within normal limits. Normal speech. PSYCHIATRIC: Appropriate mood and affect; insight and judgment normal. Data Data Last Documented VS Vital Signs Date Time Temp Pulse Resp B/P (MAP) Pulse Ox O2 Delivery O2 Flow Rate FiO2 06/26/17 19:16 98.8 82 16 123/69 (87) 100 Room Air Orders Orders Complete Blood Count With Diff (06/26/17 21:48) Comprehensive Metabolic Panel (06/26/17 21:48) Urinalysis - C+S If Indicated (06/26/17 21:48) Iv Access Insert/Monitor (06/26/17 21:48) Ecg Monitoring (06/26/17 21:48) Oximetry (06/26/17 21:48) Sodium Chlor 0.9% 1000 Ml Inj (Ns 1000 M (06/26/17 21:48) Sodium Chloride 0.9% Flush (Ns Flush) (06/26/17 22:00) Ed Urine Pregnancytest Poc (06/26/17 21:48) Metoclopramide Inj (Reglan Inj) (06/26/17 22:00) Ketorolac Inj (Toradol Inj) (06/26/17 22:00) Influenzae A/B Antigen (06/26/17 21:48) Group A Rapid Strep Screen (06/26/17 21:48) Chest, Single Ap (06/26/17 ) Strep Culture (Group A) (06/26/17 22:00) Urine Culture (06/26/17 22:00) Oseltamivir (Tamiflu) (06/26/17 23:30) Nitrofurantoin Monohyd Macrocr (Macrobid (06/26/17 23:30) Labs Laboratory Tests Test 06/26/17 22:00 White Blood Count 9.1 TH/MM3 Red Blood Count 4.01 MIL/MM3 Hemoglobin 11.8 GM/DL Hematocrit 35.0 % Mean Corpuscular Volume 87.3 FL Mean Corpuscular Hemoglobin 29.5 PG Mean Corpuscular Hemoglobin Concent 33.7 % Red Cell Distribution Width 13.7 % Platelet Count 259 TH/MM3 Mean Platelet Volume 8.6 FL Neutrophils (%) (Auto) 70.0 % Lymphocytes (%) (Auto) 19.9 % Monocytes (%) (Auto) 4.7 % Eosinophils (%) (Auto) 5.1 % Basophils (%) (Auto) 0.3 % Neutrophils # (Auto) 6.3 TH/MM3 Lymphocytes # (Auto) 1.8 TH/MM3 Monocytes # (Auto) 0.4 TH/MM3 Eosinophils # (Auto) 0.5 TH/MM3 Basophils # (Auto) 0.0 TH/MM3 CBC Comment DIFF FINAL Differential Comment Urine Color YELLOW Urine Turbidity CLOUDY Urine pH 6.0 Urine Specific [place] 1.025 Urine Protein 30 mg/dL Urine Glucose (UA) NEG mg/dL Urine Ketones NEG mg/dL Urine Occult Blood NEG Urine Nitrite NEG Urine Bilirubin NEG Urine Urobilinogen 2.0 MG/DL Urine Leukocyte Esterase LARGE Urine RBC 10 /hpf Urine WBC 10 /hpf Urine Squamous Epithelial Cells 89 /hpf Urine Amorphous Sediment RARE Urine Bacteria MANY /hpf Urine Mucus MANY /lpf Microscopic Urinalysis Comment CULTURE INDICATED Blood Urea Nitrogen 10 MG/DL Creatinine 0.70 MG/DL Random Glucose 81 MG/DL Total Protein 8.3 GM/DL Albumin 3.9 GM/DL Calcium Level 8.6 MG/DL Alkaline Phosphatase 73 U/L Aspartate Amino Transf (AST/SGOT) 19 U/L Alanine Aminotransferase (ALT/SGPT) 55 U/L Total Bilirubin 0.2 MG/DL Sodium Level 140 MEQ/L Potassium Level 3.8 MEQ/L Chloride Level 109 MEQ/L Carbon Dioxide Level 25.7 MEQ/L Anion Gap 5 MEQ/L Estimat Glomerular Filtration Rate 122 ML/MIN [facility] Medical Decision Making Medical Screen Exam Complete: Yes Emergency Medical Condition: Yes Differential Diagnosis Influenza, viral illness, URI, pharyngitis/strep pharyngitis, pneumonia, bronchitis, dehydration/metabolic abnormality Narrative Course Vital signs reviewed and are within normal limits. CBC is unremarkable. CMP is unremarkable. UA is suggestive of UTI. Urine is negative. Chest x-ray shows no acute disease. Group A strep negative. Influenza negative. The patient was given a liter of normal saline IV, IV Reglan, and IV Toradol, and feels significantly improved. She will be started on Macrobid for her UA as well as Tamiflu for her influenza-like symptoms. She was advised to follow- up with a primary care physician this week. She was informed on when to return to the emergency department. She verbalizes understanding and agreement with plan. Diagnosis Primary Impression: Influenza-like illness Additional Impression: UTI (urinary tract infection) Qualified Codes: N39.0 - Urinary tract infection, site not specified; R31.9 - Hematuria, unspecified Referrals: Primary Care Physician 3 days Additional Instructions: Follow-up with a primary care physician this week. Stay hydrated with plenty of fluids. Take medications as prescribed. Return to the emergency department for worsening symptoms or any other concerns. Scripts Oseltamivir (Tamiflu) 75 Mg Cap 75 MG PO BID for Mgmt Viral Infection for 5 Days, #10 CAP 0 Refills Prov: Tylor Borrero MD 06/26/17 Nitrofurantoin Monohydrate Macrocrystals (Macrobid) 100 Mg Cap 100 MG PO BID for Infection for 7 Days, #14 CAP 0 Refills Prov: Tylor Borrero MD 06/26/17 Disposition: 01 DISCHARGE HOME Condition: Stable Tylor Borrero MD Jun 26, 2017 21:53
[2017-06-26] MEDS ORDERED: KETOROLAC TROMETHAMINE 30 MG/ML (IVP) VIAL IV PUSH ONE (22:00)
[2017-06-26] MEDS ORDERED: SODIUM CHLORIDE 0.9% FLUSH 10 ML FLUSH IV FLUSH PRN (22:00)
[2017-06-26] MEDS ORDERED: METOCLOPRAMIDE HCL 10 MG/2 ML VIAL IV PUSH ONE (22:00)
--- NOTE | 2017-06-26 22:09 | RADRPT ---
EXAM DATE/TIME: 06/26/2017 21:54 [facility] COMPARISON: No previous studies available for comparison. INDICATIONS : Cough and shortness of breath. MEDICAL HISTORY : None. SURGICAL HISTORY : None. ENCOUNTER: Initial ACUITY: 2 days PAIN SCORE: 0/10 LOCATION: Bilateral chest FINDINGS: A single view of the chest demonstrates the lungs to be symmetrically aerated without evidence of mas s, infiltrate or effusion. The cardiomediastinal contours are unremarkable. Osseous structures are intact. CONCLUSION: No evidence of acute cardiopulmonary disease. Yovanny Echols MD on June 26, 2017 at 22:06 Board Certified Radiologist. This report was verified electronically.
[2017-06-26 23:05] LABS: AMORPHOUS SEDIMENT, URINE RARE; BACTERIA, URINE MANY /hpf; BILIRUBIN, URINE NEG (NEG); BLOOD, URINE NEG (NEG); GLUCOSE,URINE NEG (NEG); KETONE, URINE NEG (NEG); MUCUS URINE MANY /lpf (OCC); NITRITE,URINE NEG (NEG); SQUAMOUS EPITHELIAL CELL URINE 89 /hpf (0-5); URINE COLOR YELLOW (YELLW/STRAW); URINE LEUKOCYTE ESTERASE LARGE (NEG)
[2017-06-26 23:11] LABS: AUTOMATED NEUTROPHIL # 6.3 TH/MM3 (1.8-7.7); BASOPHIL % 0.3 % (0.0-2.0); EOSINOPHIL # 0.5 TH/MM3 (0-0.4); EOSINOPHIL % 5.1 % (0.0-4.0); HEMOGLOBIN 11.8 GM/DL (11.6-15.3); LYMPH % 19.9 % (9.0-44.0); LYMPHOCYTE # 1.8 TH/MM3 (1.0-4.8); MEAN CELL VOLUME 87.3 FL (80.0-100.0); MEAN CORPUSCULAR HEMOGLOBIN 29.5 PG (27.0-34.0); MEAN CORPUSCULAR HGB CONC 33.7 % (32.0-36.0); MEAN PLATELET VOLUME 8.6 FL (7.0-11.0); MONO % 4.7 % (0.0-8.0); MONOCYTE # 0.4 TH/MM3 (0-0.9); PLATELET COUNT 259 TH/MM3 (150-450); RED BLOOD COUNT 4.01 MIL/MM3 (4.00-5.30); RED CELL DISTRIBUTION WIDTH 13.7 % (11.6-17.2); WHITE BLOOD COUNT 9.1 TH/MM3 (4.0-11.0)
[2017-06-26 23:26] LABS: ALBUMIN 3.9 GM/DL (3.4-5.0); ALT (GPT) 55 U/L (10-53); AST (GOT) 19 U/L (15-37); BICARBONATE 25.7 MEQ/L (21.0-32.0); BLOOD UREA NITROGEN 10 MG/DL (7-18); CALCIUM 8.6 MG/DL (8.5-10.1); CHLORIDE 109 MEQ/L (98-107); GLOMERULAR FILTRATION RATE 122 ML/MIN (>89); GLUCOSE,RANDOM 81 MG/DL (74-106); SODIUM (NA) 140 MEQ/L (136-145)
[2017-06-26 23:28] LABS: ALKALINE PHOSPHATASE 73 U/L (45-117); TOTAL BILIRUBIN ADULT 0.2 MG/DL (0.2-1.0); TOTAL PROTEIN 8.3 GM/DL (6.4-8.2)
[2017-06-26] MEDS ORDERED: OSELTAMIVIR PHOSPHATE 75 MG CAP PO ONE (23:30)
[2017-06-26] MEDS ORDERED: NITROFURANTOIN MONOHYD MACROCR 100 MG CAP PO ONE (23:30)
[2017-06-26] MEDS ORDERED: MACR100C2 PO (23:34)
[2017-06-26] MEDS ORDERED: OSEL75 PO (23:34)
== END 2017-06-27 00:09 | disposition home or self-care (01) ==
LOC: NEPD 19:15
DX: J11.1 Influenza due to unidentified influenza virus with other respiratory manifestations (principal); N39.0 Urinary tract infection, site not specified; R31.9 Hematuria, unspecified
CPT/HCPCS: 71045; 80053; 81001; 84703; 85025; 87081; 87086; 87804; 87880; 96361; 96374; 96375; 99284; J1885; J2765; J7030

== ENCOUNTER 2017-07-01 15:27 | Emergency (ER) | payer MEDICAID ==
[~2017-07-01] VITALS: Ht 165.1 cm; Wt 82.0 kg
[~2017-07-01 15:27] MED LIST changes: -IBUP-232 PO; +MACR100C2 PO; +OSEL75 PO; -ZOFR4TAB3 SL
[2017-07-01 15:29] VITALS: BP 115/73; PULSE 70; RESP 22; TEMP 98.7; O2SAT 95
--- NOTE | 2017-07-01 17:08 | PD ---
HPI Chief Complaint: Cold / Flu Symptoms Time Seen by Provider: 17:04 Travel History International Travel<30 days: No Contact w/Intl Traveler<30days: No Traveled to known affect area: No History of Present Illness HPI 26-year-old female presents for evaluation of cough, congestion, myalgias, nausea, vomiting. Symptoms have been ongoing for the past several days. Cough is mostly dry, occasionally productive. Denies abdominal pain, dysuria, flank pain, rash or recent travel. She was seen on June 26 which had lab work which was unremarkable. She was felt to have an influenza-like illness and a urinary tract infection and she was started on Tamiflu in Macrobid. The urinalysis essentially grown out mixed gram-positive gayatri, likely contaminants. Upper respiratory symptoms have been persistent which prompted evaluation. She is not currently using any antitussives for symptomatic relief. She has no other complaints at this time. PFSH Past Medical History Diminished Hearing: No Reproductive: Yes (RT OVARIAN CYST, PID) Immunizations Current: Yes ?: Not : 3 Para: 1 Miscarriage: 0 : 2 Ovarian Cysts: Yes Past Surgical History Section: No Social History Alcohol Use: No Tobacco Use: No Substance Use: No Allergies-Medications (Allergen,Severity, Reaction): Coded Allergies: cephalexin (Unverified Allergy, Mild, rash, 07/01/17) Reported Meds & Prescriptions Reported Meds & Active Scripts Active Tessalon Perles (Benzonatate) 100 Mg Cap 200 Mg PO TID PRN Zofran (Ondansetron HCl) 4 Mg Tab 4 Mg PO Q6HR PRN Prednisone 20 Mg Tab 20 Mg PO BID 5 Days Proair Hfa 8.5 GM Inh (Albuterol Sulfate) 90 Mcg/Act Aer 2 Puff INH Q4-6H PRN 108 mcg/actuation Tamiflu (Oseltamivir Phosphate) 75 Mg Cap 75 Mg PO BID 5 Days Macrobid (Nitrofurantoin Monoh/Nitrofur Macro) 100 Mg Cap 100 Mg PO BID 7 Days Review of Systems Except as stated in HPI: all other systems reviewed are Neg Physical Exam Narrative GENERAL: Well-developed well-nourished female who has a dry cough during most of the examination. SKIN: Warm and dry. HEAD: Atraumatic. Normocephalic. EYES: Pupils equal and round. No scleral icterus. No injection or drainage. ENT: No nasal bleeding or discharge. Mucous membranes pink and moist. NECK: Trachea midline. No JVD. CARDIOVASCULAR: Regular rate and rhythm. No murmur appreciated. RESPIRATORY: No accessory muscle use inspiratory wheezing noted bilaterally. No crackles. GASTROINTESTINAL: Abdomen soft, non-tender, nondistended. Hepatic and splenic margins not palpable. MUSCULOSKELETAL: No obvious deformities. No clubbing. No cyanosis. No edema. NEUROLOGICAL: Awake and alert. No obvious cranial nerve deficits. Motor grossly within normal limits. Normal speech. PSYCHIATRIC: Appropriate mood and affect; insight and judgment normal. Data Data Last Documented VS Vital Signs Date Time Temp Pulse Resp B/P (MAP) Pulse Ox O2 Delivery O2 Flow Rate FiO2 07/01/17 17:29 98 21 07/01/17 15:29 98.7 70 22 115/73 (87) Orders Orders Albuterol-Ipratropium Neb (Duoneb Neb) (07/01/17 17:15) Lidocaine Pf 2% Neb (Lidocaine Pf 2% Neb (07/01/17 17:15) Ondansetron Odt (Zofran Odt) (07/01/17 17:15) Oral Rehydration (07/01/17 17:05) Chest, Pa & Lat (07/01/17 ) Ed Discharge Order (07/01/17 17:44) [facility] Medical Decision Making Medical Screen Exam Complete: Yes Emergency Medical Condition: Yes Medical Record Reviewed: Yes Differential Diagnosis Influenza, bronchitis, reactive airway disease, pneumonia, dehydration, gastroenteritis Narrative Course The patient will be given albuterol and lidocaine nebulizer treatment, Zofran, oral rehydration. A chest x-ray will be obtained. Chest x-ray reveals no acute normalities. The patient feels significantly improved after administration of medication. She appears to have a viral syndrome. She will be discharged with medications to help with her symptoms. Discussed signs and symptoms that would warrant returning to the emergency room. Diagnosis Primary Impression: Viral syndrome Departure Forms: Tests/Procedures, Work Release Enter return to work date: Jul 05, 2017 Additional Instructions: Medication as prescribed. Stay well-hydrated and well-nourished. Return for any emergent medical conditions. Med/Other Pt SpecificInfo: Prescription(s) given Scripts Benzonatate (Tessalon Perles) 100 Mg Cap 200 MG PO TID Y for COUGH, #30 CAP 0 Refills Prov: Sarmad Reed MD 07/01/17 Ondansetron (Zofran) 4 Mg Tab 4 MG PO Q6HR Y for NAUSEA OR VOMITING, #20 TAB 0 Refills Prov: Sarmad Reed MD 07/01/17 Prednisone (Prednisone) 20 Mg Tab 20 MG PO BID for 5 Days, #10 TAB 0 Refills Prov: Sarmad Reed MD 07/01/17 Albuterol 8.5 GM Inh (Proair Hfa 8.5 GM Inh) 90 Mcg/Act Aer 2 PUFF INH Q4-6H Y for SHORTNESS OF BREATH, #1 INHALER 0 Refills 108 mcg/actuation Prov: Sarmad Reed MD 07/01/17 Disposition: 01 DISCHARGE HOME Condition: Stable Keenan Rivera Jul 01, 2017 17:08
[2017-07-01] MEDS ORDERED: ONDANSETRON ODT 4 MG TAB PO ONE (17:15)
[2017-07-01] MEDS ORDERED: RESP: LIDOCAINE HCL 2% 2 ML NEB NEB ONE (17:15)
[2017-07-01] MEDS: RESP: ALBUTEROL 2.5 MG/IPRATROPIUM 0.5 MG NEB (SCH) INH (17:27)
[2017-07-01 17:29] VITALS: O2SAT 98
--- NOTE | 2017-07-01 17:39 | RADRPT ---
EXAM DATE/TIME: 07/01/2017 17:23 [facility] COMPARISON: No previous studies available for comparison. INDICATIONS : Cough, flu like symptoms. MEDICAL HISTORY : None. SURGICAL HISTORY : None. ENCOUNTER: Initial ACUITY: 1 day PAIN SCORE: 0/10 LOCATION: Bilateral chest FINDINGS: PA and lateral views of the chest demonstrate the lungs to be symmetrically aerated without evidence of mass, infiltrate or effusion. The cardiomediastinal contours are unremarkable. Osseous structure s are intact. CONCLUSION: No acute disease. There is no evidence of pneumonia. Arie Mayen MD on July 01, 2017 at 17:35 Board Certified Radiologist. This report was verified electronically.
[2017-07-01] MEDS ORDERED: ALBUAER3 INH (17:43)
[2017-07-01] MEDS ORDERED: ZOFR4TAB PO (17:43)
[2017-07-01] MEDS ORDERED: PRED20 PO (17:43)
[2017-07-01] MEDS ORDERED: BENZ100 PO (17:43)
== END 2017-07-01 18:16 | disposition home or self-care (01) ==
LOC: NEPK 15:27
DX: B34.9 Viral infection, unspecified (principal); N73.9 Female pelvic inflammatory disease, unspecified; N83.201 Unspecified ovarian cyst, right side
CPT/HCPCS: 71046; 94640; 94664; 99283

== ENCOUNTER 2017-08-30 19:59 | Emergency (ER) | payer MEDICAID ==
[~2017-08-30] VITALS: Ht 165.1 cm; Wt 81.8 kg
[~2017-08-30 19:59] MED LIST changes: +ALBUAER3 INH; +BENZ100 PO; +PRED20 PO; +ZOFR4TAB PO
[2017-08-30 20:14] VITALS: BP 124/78; PULSE 83; RESP 20; TEMP 99.1; O2SAT 99
--- NOTE | 2017-08-30 22:10 | PD ---
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 Patient reports that she has had her period since May, she received the Depo Provera injection at the end of April or beginning of May, she is unsure exactly which. Since that time she has had the bleeding. She reports feeling occasional lightheadedness, headache and shortness of breath. Symptom onset was gradual, symptoms appear mild in nature. There are no alleviating factors. Patient was placed on double to help control menstrual cramping and heavy periods. [facility] Past Medical History Medical History: Denies Significant Hx Diabetes: No Patient Takes Glucophage: No Diminished Hearing: No Reproductive: Yes (RT OVARIAN CYST, PID) Immunizations Current: Yes Tetanus Vaccination: < 5 Years Influenza Vaccination: No ?: Not LMP: DEPO : 3 Para: 1 Miscarriage: 0 : 2 Ovarian Cysts: Yes Past Surgical History Section: No Social History Alcohol Use: No Tobacco Use: No Substance Use: No Allergies-Medications (Allergen,Severity, Reaction): Coded Allergies: cephalexin (Unverified Allergy, Mild, rash, 08/30/17) Reported Meds & Prescriptions Reported Meds & Active Scripts Active No Active Prescriptions or Reported Medications Review of Systems Except as stated in HPI: all other systems reviewed are Neg Genitourinary: Positive: Pelvic Pain (Cramping), Vaginal Bleeding Physical Exam Narrative GENERAL: Well-developed, well-nourished, alert -[place] female. Presenting in no acute distress. SKIN: Warm and dry. HEAD: Atraumatic. Normocephalic. EYES: Pupils equal and round. No scleral icterus. No injection or drainage. ENT: No nasal bleeding or discharge. Mucous membranes pink and moist. NECK: Trachea midline. No JVD. CARDIOVASCULAR: Regular rate and rhythm. RESPIRATORY: No accessory muscle use. Clear to auscultation. Breath sounds equal bilaterally. GASTROINTESTINAL: Abdomen soft, non-tender, nondistended. Hepatic and splenic margins not palpable. MUSCULOSKELETAL: Extremities without clubbing, cyanosis, or edema. No obvious deformities. NEUROLOGICAL: Awake and alert. No obvious cranial nerve deficits. Motor grossly within normal limits. Five out of 5 muscle strength in the arms and legs. Normal speech. PSYCHIATRIC: Appropriate mood and affect; insight and judgment normal. Data Data Last Documented VS Vital Signs Date Time Temp Pulse Resp B/P (MAP) Pulse Ox O2 Delivery O2 Flow Rate FiO2 08/30/17 20:14 99.1 83 20 124/78 (93) 99 Orders Orders Complete Blood Count With Diff (08/30/17 20:16) Basic Metabolic Panel (Bmp) (08/30/17 20:16) Urinalysis - C+S If Indicated (08/30/17 20:16) Ed Urine Pregnancytest Poc (08/30/17 20:16) Labs Laboratory Tests Test 08/30/17 22:20 08/30/17 22:24 Urine Color YELLOW Urine Turbidity CLEAR Urine pH 6.0 Urine Specific [place] 1.029 Urine Protein TRACE mg/dL Urine Glucose (UA) NEG mg/dL Urine Ketones NEG mg/dL Urine Occult Blood LARGE Urine Nitrite NEG Urine Bilirubin NEG Urine Urobilinogen LESS THAN 2.0 MG/DL Urine Leukocyte Esterase TRACE Urine RBC 1 /hpf Urine WBC 6 /hpf Urine Squamous Epithelial Cells 4 /hpf Urine Bacteria RARE /hpf Urine Mucus FEW /lpf Microscopic Urinalysis Comment CULT NOT INDICATED White Blood Count 7.2 TH/MM3 Red Blood Count 4.02 MIL/MM3 Hemoglobin 11.8 GM/DL Hematocrit 35.1 % Mean Corpuscular Volume 87.2 FL Mean Corpuscular Hemoglobin 29.4 PG Mean Corpuscular Hemoglobin Concent 33.7 % Red Cell Distribution Width 14.0 % Platelet Count 271 TH/MM3 Mean Platelet Volume 8.8 FL Neutrophils (%) (Auto) 54.7 % Lymphocytes (%) (Auto) 32.3 % Monocytes (%) (Auto) 7.0 % Eosinophils (%) (Auto) 5.6 % Basophils (%) (Auto) 0.4 % Neutrophils # (Auto) 3.9 TH/MM3 Lymphocytes # (Auto) 2.3 TH/MM3 Monocytes # (Auto) 0.5 TH/MM3 Eosinophils # (Auto) 0.4 TH/MM3 Basophils # (Auto) 0.0 TH/MM3 CBC Comment DIFF FINAL Differential Comment Blood Urea Nitrogen 16 MG/DL Creatinine 0.78 MG/DL Random Glucose 64 MG/DL Calcium Level 9.4 MG/DL Sodium Level 141 MEQ/L Potassium Level 3.8 MEQ/L Chloride Level 107 MEQ/L Carbon Dioxide Level 26.0 MEQ/L Anion Gap 8 MEQ/L Estimat Glomerular Filtration Rate 108 ML/MIN MDM Medical Decision Making Medical Screen Exam Complete: Yes Emergency Medical Condition: Yes Interpretation(s) Laboratory Tests Test 08/30/17 22:20 08/30/17 22:24 Urine Color YELLOW Urine Turbidity CLEAR Urine pH 6.0 Urine Specific [place] 1.029 Urine Protein TRACE mg/dL Urine Glucose (UA) NEG mg/dL Urine Ketones NEG mg/dL Urine Occult Blood LARGE Urine Nitrite NEG Urine Bilirubin NEG Urine Urobilinogen LESS THAN 2.0 MG/DL Urine Leukocyte Esterase TRACE Urine RBC 1 /hpf Urine WBC 6 /hpf Urine Squamous Epithelial Cells 4 /hpf Urine Bacteria RARE /hpf Urine Mucus FEW /lpf Microscopic Urinalysis Comment CULT NOT INDICATED White Blood Count 7.2 TH/MM3 Red Blood Count 4.02 MIL/MM3 Hemoglobin 11.8 GM/DL Hematocrit 35.1 % Mean Corpuscular Volume 87.2 FL Mean Corpuscular Hemoglobin 29.4 PG Mean Corpuscular Hemoglobin Concent 33.7 % Red Cell Distribution Width 14.0 % Platelet Count 271 TH/MM3 Mean Platelet Volume 8.8 FL Neutrophils (%) (Auto) 54.7 % Lymphocytes (%) (Auto) 32.3 % Monocytes (%) (Auto) 7.0 % Eosinophils (%) (Auto) 5.6 % Basophils (%) (Auto) 0.4 % Neutrophils # (Auto) 3.9 TH/MM3 Lymphocytes # (Auto) 2.3 TH/MM3 Monocytes # (Auto) 0.5 TH/MM3 Eosinophils # (Auto) 0.4 TH/MM3 Basophils # (Auto) 0.0 TH/MM3 CBC Comment DIFF FINAL Differential Comment Blood Urea Nitrogen 16 MG/DL Creatinine 0.78 MG/DL Random Glucose 64 MG/DL Calcium Level 9.4 MG/DL Sodium Level 141 MEQ/L Potassium Level 3.8 MEQ/L Chloride Level 107 MEQ/L Carbon Dioxide Level 26.0 MEQ/L Anion Gap 8 MEQ/L Estimat Glomerular Filtration Rate 108 ML/MIN Vital Signs Date Time Temp Pulse Resp B/P (MAP) Pulse Ox O2 Delivery O2 Flow Rate FiO2 08/30/17 20:14 99.1 83 20 124/78 (93) 99 Differential Diagnosis Dysfunctional uterine bleeding versus anemia versus metabolic abnormality versus other. Narrative Course Patient is a 26-year-old female presenting for evaluation of 3 months of vaginal bleeding after receiving the Depo-Provera injection. Patient has not followed up with her manager strategy. Labs ordered and pending. Labs reviewed, no acute findings identified. There is no anemia suggest active heavy bleeding. 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 She is encouraged to return to emergency department for any new or worsening symptoms. She verbalized understanding these instructions. Patient stable for discharge. Diagnosis Primary Impression: Abnormal uterine bleeding Referrals: [facility] Dept. 2 days Patient Instructions: Dysfunctional Uterine Bleeding (ED), General Instructions Additional Instructions: Follow-up with her manager strategy at the health department Return to emergency department for any new or worsening symptoms Med/Other Pt SpecificInfo: No Change to Meds Scripts No Active Prescriptions or Reported Meds Disposition: 01 DISCHARGE HOME Condition: Stable Shelley Younger Aug 30, 2017 22:10
[2017-08-30 23:00] LABS: AUTOMATED NEUTROPHIL # 3.9 TH/MM3 (1.8-7.7); BASOPHIL % 0.4 % (0.0-2.0); EOSINOPHIL # 0.4 TH/MM3 (0-0.4); EOSINOPHIL % 5.6 % (0.0-4.0); HEMATOCRIT 35.1 % (35.0-46.0); HEMOGLOBIN 11.8 GM/DL (11.6-15.3); LYMPH % 32.3 % (9.0-44.0); LYMPHOCYTE # 2.3 TH/MM3 (1.0-4.8); MEAN CELL VOLUME 87.2 FL (80.0-100.0); MEAN CORPUSCULAR HEMOGLOBIN 29.4 PG (27.0-34.0); MEAN CORPUSCULAR HGB CONC 33.7 % (32.0-36.0); MEAN PLATELET VOLUME 8.8 FL (7.0-11.0); MONOCYTE # 0.5 TH/MM3 (0-0.9); NEUT % 54.7 % (16.0-70.0); PLATELET COUNT 271 TH/MM3 (150-450); RED BLOOD COUNT 4.02 MIL/MM3 (4.00-5.30); WHITE BLOOD COUNT 7.2 TH/MM3 (4.0-11.0)
[2017-08-30 23:07] LABS: BACTERIA, URINE RARE /hpf; BILIRUBIN, URINE NEG (NEG); BLOOD, URINE LARGE (NEG); GLUCOSE,URINE NEG (NEG); KETONE, URINE NEG (NEG); MUCUS URINE FEW /lpf (OCC); NITRITE,URINE NEG (NEG); SQUAMOUS EPITHELIAL CELL URINE 4 /hpf (0-5); URINE COLOR YELLOW (YELLW/STRAW); URINE LEUKOCYTE ESTERASE TRACE (NEG)
[2017-08-30 23:32] LABS: CALCIUM 9.4 MG/DL (8.5-10.1); CREATININE 0.78 MG/DL (0.50-1.00)
== END 2017-08-30 23:57 | disposition home or self-care (01) ==
LOC: NED 19:59 → NEPD 23:57
DX: N93.8 Other specified abnormal uterine and vaginal bleeding (principal)
CPT/HCPCS: 80048; 81001; 84703; 85025; 99283